=== PATIENT | female | born 1980 | race African-American/Black ===

== ENCOUNTER → 2020-02-03 | Outpatient (CLI) | payer OTHER ==
--- NOTE | 2020-02-03 15:02 | RADIOLOGY REPORT (SQ) ---
EXAM DESCRIPTION: HYSTEROSALPINGOGRAM; HYSTERO CATH/INJECTION COMPLETED DATE/TIME: 02/03/2020 2:40 pm REASON FOR STUDY: LEIOMYOMA OF UTERUS, UNSPECIFIED (D25.9) D25.9 LEIOMYOMA OF UTERUS, UNSPECIFIED COMPARISON: MRI pelvis 07/27/2012 PROCEDURE: PRE-PROCEDURE: Procedure was explained to the patient. She was told to expect cramping du ring the procedure, and possible spotting post procedure. PROCEDURE: The cervix was prepped in sterile fashion. Under direct visual inspection, the cervix was cannulated with the hysterosalpingogram catheter and contrast injected. TECHNIQUE: Temporal fluoroscopic images acquired during the procedure stored to PACS. FLUOROSCOPY TIME: Less than 5 seconds 20 images saved to PACS. LIMITATIONS: None. FINDINGS: UTERUS: No synechiae. There is extrinsic flattening of the endometrial canal from fibroid s most pronounced along the rightward lateral uterus. RIGHT ADNEXA: Only a short segment of fallopian tube adjacent to the uterus opacified with contrast. There was preferential spillage of contrast out the left fallopian tube. LEFT ADNEXA: Normal size fallopian tube. Free spill of contrast into the peritoneal cavity. Prefere ntial spillage of contrast from the left fallopian tube. POST PROCEDURE: The patient tolerated the procedure with no adverse effects. IMPRESSION: Patent left fallopian tube. Preferential flow of contrast out the left fallopian tube. Prominent extrinsic compression along the rightward endometrial canal from uterine fibroid. Poor allison ling of the right fallopian tube. COMMENT: Study performed by and interpreted by the radiologist. Quality ID [id number]: Final reports for procedures using fluoroscopy that document radiation exposure ladarius savage, or exposure time and number of fluorographic images (if radiation exposure indices are not avail able) TECHNICAL DOCUMENTATION: JOB ID: [id number] 2010 [employer]- All Rights Reserved Reading location - IP/workstation name: [email or web address]
== END ==
LOC: RAD 13:51
PROVIDERS: ATTEND Obstetrics & Gynecology Gynecology
DX: D25.9 Leiomyoma of uterus, unspecified (principal); N83.8 Other noninflammatory disorders of ovary, fallopian tube and broad ligament
CPT/HCPCS: 58340; 74740